=== PATIENT | male | born 1975 | race Caucasian/White ===

== ENCOUNTER 2016-12-17 11:07 | Emergency (ER) | payer OTHER ==
[~2016-12-17] VITALS: Ht 180.3 cm; Wt 164.0 kg
[2016-12-17] MEDS ORDERED: LISI-515 PO (11:17)
[2016-12-17 11:21] VITALS: O2SAT 99
[2016-12-17 11:25] VITALS: BP 135/72; PULSE 79; RESP 20; O2SAT 99
[2016-12-17] MEDS: NITROGLYCERIN 0.4 MG SL 25 TABS/BTL SL SCH ×3 (11:28→11:40)
[2016-12-17] MEDS ORDERED: ASPIRIN 81 MG CHEW TAB PO ONE (11:30)
[2016-12-17] MEDS ORDERED: SODIUM CHLORIDE 0.9% FLUSH 5 ML FLUSH IVF PRN (11:30)
--- NOTE | 2016-12-17 11:32 | PD ---
HPI Chief Complaint: Chest Pain Time Seen by Provider: 11:20 Travel History International Travel<30 days: No Contact w/Intl Traveler<30days: No Traveled to known affect area: No History of Present Illness HPI 41-year-old male with history of hypertension, craniosynostosis with [employer] shunt presents to the emergency department for evaluation of left anterior chest pain that began about 1.5 hours ago. Patient states he was sitting when the pain began. Describes as a squeezing pain. Has been constant since it began. Denies any aggravating or alleviating factors. States that he also has a headache since the pain started. Denies any shortness of breath, difficulty breathing, lightheadedness, dizziness, nausea, vomiting, abdominal pain, fever, chills, cough or cold symptoms. Denies any history of [place] or heart disease. Denies any previous cardiac catheterization or stress test. States that his father had a heart attack at age 55. Denies any history of PE or lung disease. Denies any smoking history. He has never had chest pain like this in the past. No other complaints. PFSH Past Medical History Diminished Hearing: No Hypertension: Yes Medical other: Yes (cranial facial senosis) Neurologic: Yes Tetanus Vaccination: < 5 Years Influenza Vaccination: No Past Surgical History Neurologic Surgery: Yes (brain sx/ ct shunt) Social History Alcohol Use: No Tobacco Use: No Substance Use: No Allergies-Medications (Allergen,Severity, Reaction): Coded Allergies: Benadryl (Verified Allergy, Intermediate, Rash, 12/17/16) Reported Meds & Prescriptions Reported Meds & Active Scripts Active Reported Lisinopril 20 Mg Tab 20 Mg PO DAILY Review of Systems Except as stated in HPI: all other systems reviewed are Neg Physical Exam Narrative GENERAL: Obese pleasant male patient in no acute distress who is nontoxic appearing. SKIN: Warm and dry. HEAD: Craniofacial deformities, chronic per patient. Atraumatic. EYES: No injection, drainage, or hyphema noted. PERRLA. EOMI. ENT: No nasal drainage noted. Oropharynx is clear. NECK: Supple and the trachea is midline. CARDIOVASCULAR: Regular rate and rhythm. RESPIRATORY: Breath sounds are equal bilaterally with no accessory muscle use, wheezing, rhonchi, or crackles. GASTROINTESTINAL: Abdomen is soft, non-tender, and nondistended. MUSCULOSKELETAL: No obvious deformities, swelling, cyanosis, or ecchymosis is present throughout the upper and lower extremities. Patient has full range of motion without any signs of neurovascular compromise. NEUROLOGICAL: Awake, alert, and oriented. Normal speech and gait. Cranial nerves are grossly intact. Data Data Last Documented VS Vital Signs Date Time Temp Pulse Resp B/P Pulse Ox O2 Delivery O2 Flow Rate FiO2 12/17/16 11:38 96 18 124/73 99 Room Air Orders Electrocardiogram (12/17/16 11:17) Ckmb (Isoenzyme) Profile (12/17/16 11:17) Complete Blood Count With Diff (12/17/16 11:17) Comprehensive Metabolic Panel (12/17/16 11:17) Prothrombin Time / Inr (Pt) (12/17/16 11:17) Act Partial Throm Time (Ptt) (12/17/16 11:17) Troponin I (12/17/16 11:17) Chest, Single Ap (12/17/16 11:17) Ecg Monitoring (12/17/16 11:17) Iv Access Insert/Monitor (12/17/16 11:17) Oximetry (12/17/16 11:17) Oxygen Administration (12/17/16 11:17) Aspirin Chew (Aspirin Chew) (12/17/16 11:30) Sodium Chloride 0.9% Flush (Ns Flush) (12/17/16 11:30) Nitroglycerin Sl (Nitrostat Sl) (12/17/16 11:30) CKMB (12/17/16 11:20) CKMB% (12/17/16 11:20) Labs Laboratory Tests Test 12/17/16 11:20 White Blood Count 6.4 TH/MM3 Red Blood Count 5.32 MIL/MM3 Hemoglobin 16.3 GM/DL Hematocrit 47.4 % Mean Corpuscular Volume 89.1 FL Mean Corpuscular Hemoglobin 30.6 PG Mean Corpuscular Hemoglobin 34.3 % Concent Red Cell Distribution Width 12.4 % Platelet Count 191 TH/MM3 Mean Platelet Volume 9.7 FL Neutrophils (%) (Auto) 69.5 % Lymphocytes (%) (Auto) 21.2 % Monocytes (%) (Auto) 7.3 % Eosinophils (%) (Auto) 1.4 % Basophils (%) (Auto) 0.6 % Neutrophils # (Auto) 4.5 TH/MM3 Lymphocytes # (Auto) 1.4 TH/MM3 Monocytes # (Auto) 0.5 TH/MM3 Eosinophils # (Auto) 0.1 TH/MM3 Basophils # (Auto) 0.0 TH/MM3 CBC Comment DIFF FINAL Differential Comment Prothrombin Time 11.4 SEC Prothromb Time International 1.0 RATIO Ratio Activated Partial 27.3 SEC Thromboplast Time Sodium Level 138 MEQ/L Potassium Level 4.5 MEQ/L Chloride Level 103 MEQ/L Carbon Dioxide Level 24.9 MEQ/L Anion Gap 10 MEQ/L Blood Urea Nitrogen 19 MG/DL Creatinine 1.02 MG/DL Estimat Glomerular Filtration 81 ML/MIN Rate Random Glucose 114 MG/DL Calcium Level 9.4 MG/DL Total Bilirubin 0.6 MG/DL Aspartate Amino Transf 33 U/L (AST/SGOT) Alanine Aminotransferase 25 U/L (ALT/SGPT) Alkaline Phosphatase 90 U/L Total Creatine Kinase 249 U/L Creatine Kinase MB 3.6 NG/ML Troponin I LESS THAN 0.02 NG/ML Total Protein 8.3 GM/DL Albumin 4.3 GM/DL [facility] Medical Decision Making Medical Screen Exam Complete: Yes Emergency Medical Condition: Yes Differential Diagnosis Chest wall pain versus ACS versus anxiety versus pleurisy versus other Narrative Course 41-year-old male presents to the emergency department for evaluation of left anterior chest tightness that began about 1.5 hours ago. Patient is afebrile, vital signs are stable. Physical examination is essentially unremarkable. IV access is obtained, labs have been drawn and sent. Patient is administered aspirin and nitroglycerin. EKG shows sinus rhythm with no acute ST elevations or depressions. CBC is unremarkable. CMP is unremarkable. Troponin is less than 0.02. Coags are unremarkable. Chest x-ray is negative for any acute abnormalities. Patient has been monitored here in the emergency department and reports that his symptoms have greatly improved. Upon further discussion with the patient and his significant other that they have been under a large amount of stress since recently moving to the area 3 weeks ago and they have a very ill infant at home. The patient and spouse agree that this is likely anxiety induced chest pain and that they're likely going to try to move home. I did offer them admission to chest pain center but at this time they have declined. I have instructed them to follow up with a PCP and to return for any worsening of symptoms such as exertional chest pain, shortness of breath, difficulty breathing. Patient verbalizes understanding and agreement with treatment plan. I discussed the case with my attending physician Dr. Dunn who is aware of the patients history, physical examination findings, and treatment plan. Diagnosis Primary Impression: Atypical chest pain Referrals: Primary Care Physician Patient Instructions: Chest Pain (ED), General Instructions Additional Instructions: Follow-up with your Primary Care Physician. Return to the ED for any acute worsening of symptoms such as difficulty breathing, shortness of breath, worsening chest pain. Med/Other Pt SpecificInfo: No Change to Meds Disposition: 01 DISCHARGE HOME Condition: Stable Pamela Can Dec 17, 2016 11:32
[2016-12-17 11:38] VITALS: BP 124/73; PULSE 96; RESP 18; O2SAT 99
--- NOTE | 2016-12-17 12:05 | RADRPT ---
EXAM DATE/TIME: 12/17/2016 11:28 [facility] COMPARISON: No previous studies available for comparison. INDICATIONS : Chest pain MEDICAL HISTORY : Hypertension. SURGICAL HISTORY : None. ENCOUNTER: Initial ACUITY: 1 day PAIN SCORE: 8/10 LOCATION: chest FINDINGS: Portable AP view of the chest demonstrates a normal-sized cardiac silhouette. No effusion, consolidat ion, or pneumothorax is visualized. The bones and soft tissues demonstrate no acute abnormality. [employer] s yi tubing is visualized on the right. CONCLUSION: No acute cardiopulmonary abnormality is identified. Nithin Kellogg MD on December 17, 2016 at 12:03 Board Certified Radiologist. This report was verified electronically.
[2016-12-17 12:07] LABS: AUTOMATED NEUTROPHIL # 4.5 TH/MM3 (1.8-7.7); BASOPHIL % 0.6 % (0.0-2.0); EOSINOPHIL # 0.1 TH/MM3 (0-0.4); EOSINOPHIL % 1.4 % (0.0-4.0); HEMATOCRIT 47.4 % (39.0-51.0); HEMO FLAGS DIFF FINAL; LYMPH % 21.2 % (9.0-44.0); LYMPHOCYTE # 1.4 TH/MM3 (1.0-4.8); MEAN CELL VOLUME 89.1 FL (80.0-100.0); MEAN CORPUSCULAR HEMOGLOBIN 30.6 PG (27.0-34.0); MEAN CORPUSCULAR HGB CONC 34.3 % (32.0-36.0); MONO % 7.3 % (0.0-8.0); NEUT % 69.5 % (16.0-70.0); PLATELET COUNT 191 TH/MM3 (150-450); RED BLOOD COUNT 5.32 MIL/MM3 (4.50-5.90); RED CELL DISTRIBUTION WIDTH 12.4 % (11.6-17.2); WHITE BLOOD COUNT 6.4 TH/MM3 (4.0-11.0)
[2016-12-17 12:17] LABS: APTT (PATIENT) 27.3 SEC (24.3-30.1); PROTHROMBIN TIME - PATIENT 11.4 SEC (9.8-11.6)
[2016-12-17 12:27] LABS: ALKALINE PHOSPHATASE 90 U/L (45-117); ALT (GPT) 25 U/L (12-78); ANION GAP 10 MEQ/L (5-15); AST (GOT) 33 U/L (15-37); BICARBONATE 24.9 MEQ/L (21.0-32.0); BLOOD UREA NITROGEN 19 MG/DL (7-18); CHLORIDE 103 MEQ/L (98-107); CREATINE KINASE 249 U/L (39-308); GLOMERULAR FILTRATION RATE 81 ML/MIN (>89); SODIUM (NA) 138 MEQ/L (136-145); TOTAL BILIRUBIN ADULT 0.6 MG/DL (0.2-1.0)
[2016-12-17 12:31] LABS: POTASSIUM 4.5 MEQ/L (3.5-5.1)
[2016-12-17 12:44] LABS: CKMB 3.6 NG/ML (0.5-3.6)
[2016-12-17 13:00] VITALS: BP 106/59; PULSE 78; RESP 19; O2SAT 98
--- NOTE | 2016-12-17 13:12 | PD ---
Data Data Last Documented VS Vital Signs Date Time Temp Pulse Resp B/P Pulse Ox O2 Delivery O2 Flow Rate FiO2 12/17/16 11:38 96 18 124/73 99 Room Air Orders Electrocardiogram (12/17/16 11:17) Ckmb (Isoenzyme) Profile (12/17/16 11:17) Complete Blood Count With Diff (12/17/16 11:17) Comprehensive Metabolic Panel (12/17/16 11:17) Prothrombin Time / Inr (Pt) (12/17/16 11:17) Act Partial Throm Time (Ptt) (12/17/16 11:17) Troponin I (12/17/16 11:17) Chest, Single Ap (12/17/16 11:17) Ecg Monitoring (12/17/16 11:17) Iv Access Insert/Monitor (12/17/16 11:17) Oximetry (12/17/16 11:17) Oxygen Administration (12/17/16 11:17) Aspirin Chew (Aspirin Chew) (12/17/16 11:30) Sodium Chloride 0.9% Flush (Ns Flush) (12/17/16 11:30) Nitroglycerin Sl (Nitrostat Sl) (12/17/16 11:30) CKMB (12/17/16 11:20) CKMB% (12/17/16 11:20) Labs Laboratory Tests Test 12/17/16 11:20 White Blood Count 6.4 TH/MM3 Red Blood Count 5.32 MIL/MM3 Hemoglobin 16.3 GM/DL Hematocrit 47.4 % Mean Corpuscular Volume 89.1 FL Mean Corpuscular Hemoglobin 30.6 PG Mean Corpuscular Hemoglobin 34.3 % Concent Red Cell Distribution Width 12.4 % Platelet Count 191 TH/MM3 Mean Platelet Volume 9.7 FL Neutrophils (%) (Auto) 69.5 % Lymphocytes (%) (Auto) 21.2 % Monocytes (%) (Auto) 7.3 % Eosinophils (%) (Auto) 1.4 % Basophils (%) (Auto) 0.6 % Neutrophils # (Auto) 4.5 TH/MM3 Lymphocytes # (Auto) 1.4 TH/MM3 Monocytes # (Auto) 0.5 TH/MM3 Eosinophils # (Auto) 0.1 TH/MM3 Basophils # (Auto) 0.0 TH/MM3 CBC Comment DIFF FINAL Differential Comment Prothrombin Time 11.4 SEC Prothromb Time International 1.0 RATIO Ratio Activated Partial 27.3 SEC Thromboplast Time Sodium Level 138 MEQ/L Potassium Level 4.5 MEQ/L Chloride Level 103 MEQ/L Carbon Dioxide Level 24.9 MEQ/L Anion Gap 10 MEQ/L Blood Urea Nitrogen 19 MG/DL Creatinine 1.02 MG/DL Estimat Glomerular Filtration 81 ML/MIN Rate Random Glucose 114 MG/DL Calcium Level 9.4 MG/DL Total Bilirubin 0.6 MG/DL Aspartate Amino Transf 33 U/L (AST/SGOT) Alanine Aminotransferase 25 U/L (ALT/SGPT) Alkaline Phosphatase 90 U/L Total Creatine Kinase 249 U/L Creatine Kinase MB 3.6 NG/ML Troponin I LESS THAN 0.02 NG/ML Total Protein 8.3 GM/DL Albumin 4.3 GM/DL MDM Supervised Visit with LATRICE: Yes Narrative Course The history, exam, and medical decision-making in the associated mid-level provider note were completed with my assistance. I reviewed and agree with the findings presented. I attest that I had a [id number] encounter with the patient on the same day, and personally performed and documented my assessment and findings in the medical record. *My assessment and Findings: Well 41 year-old man with atypical chest pain. Family history of cardiac disease. History is only mildly suggestive of heart problems. Patient does endorse a lot of stress and wonders if this could be related to his symptoms. It seems likely. No obvious evidence of gastritis or hepatobiliary disease. Doesn't seem I PE or dissection. Recommend supportive treatment. Diagnosis Primary Impression: Atypical chest pain Referrals: Primary Care Physician Patient Instructions: General Instructions, Chest Pain (ED) Departure Forms: Tests/Procedures Additional Instruction: Follow-up with your Primary Care Physician. Return to the ED for any acute worsening of symptoms such as difficulty breathing, shortness of breath, worsening chest pain. Disposition: 01 DISCHARGE HOME Condition: Stable Arturo Dunn MD Dec 17, 2016 13:12
--- NOTE | 2016-12-18 10:07 | EKG ---
Date Performed: 12/17/2016 Time Performed: 11:18:19 PTAGE: 41 years EKG: Sinus rhythm WITH SINUS ARRHYTHMIA NORMAL ECG NO PREVIOUS TRACING DOCTOR: Oliverio Knapp Interpretating Date/Time 12/18/2016 10:03:49
== END 2016-12-17 13:05 | disposition home or self-care (01) ==
LOC: NEPC 11:07
DX: R07.89 Other chest pain (principal); I49.8 Other specified cardiac arrhythmias; I10 Essential (primary) hypertension; R51 Headache; Q75.0 Craniosynostosis; Z98.2 Presence of cerebrospinal fluid drainage device
CPT/HCPCS: 71010; 80053; 82550; 82552; 84484; 85025; 85610; 85730; 93005